=== PATIENT | female | born 1950 | race Caucasian/White ===

== ENCOUNTER → 2016-07-27 | Outpatient (CLI) | payer MEDICARE, BC ==
--- NOTE | ~2016-07-27 | US24 ---
[facility] A Service of [facility] RADIOLOGY TEXT RESULTS PATIENT: ISABEL AMOR LOCATION: [facility] : 48 UNIT #: [id number] AGE: [address]: Sharon Hannah APRN SEX: F ORDER DR: [id number] [facility] [address] [place], [place] [address] [id number] O MR#: [id number] Acc #: [id number] NAME: ISABEL AMOR : 1950 SEX: F STUDY DATE/TIME: 07/27/2016 8:22 UNIT: [facility] ROOM: STUDY DESCRIPTION: US Breast Unilateral Attending Physician: Sharon Hannah A.P.R.N. Referring Physician: Sharon Hannah A.P.R.N. Ordering Physician: Sharon Hannah A.P.R.N. Primary Care Physician: Sharon Hannah A.P.R.N. MEDICAL IMAGING REPORT This report is preliminary unless electronic signature is present EXAM Targeted right breast ultrasound, 07/27/2016 INDICATION 6-month followup of a probably benign lymph node in the right breast. TECHNIQUE Targeted ultrasound of the 7 o'clock position right breast was performed. COMPARISON Prior ultrasound, 01/27/2016 FINDINGS RIGHT BREAST: The patient was initially scanned independently by the technologist and then rescanned in my presence. The probably benign lymph node in the 7 o'clock position of the right breast is unchanged from the prior study. There is a vascular pedicle and what appears to represent a fatty notch. It measures up to about 8.0 mm. The patient should plan on returning for a bilateral screening study in January 2017 to return to an annual screening schedule absent new or worsening symptoms in either breast. The patient denied any new symptoms today. Findings and recommendations were discussed with the patient and she voiced understanding and agreement. IMPRESSION Probable benign lymph node in the 7 o'clock position of the right breast is unchanged. A bilateral screening mammogram in January 2017 is recommended. See discussion above. Patients over the age of 40 are entered into a reminder system with target due date for the next mammogram. A result letter will also be sent to the patient. [facility] A Service of [facility] RADIOLOGY TEXT RESULTS PATIENT: ISABEL AMOR [id number] [birth year] UNIT #: [id number] AGE: [address]: Sharon Hannah APRN SEX: F ORDER DR: BIRADS: 3 Probably Benign Finding; Short interval follow-up suggested Dictated by... Feroz Larios M.D. THIS IS AN ELECTRONICALLY VERIFIED REPORT eFroz Larios M.D. at 07/27/2016 9:56 AM Trudi TD: 07/27/2016 09:27 JOB #: [id number] MEDICAL IMAGING REPORT Page 1 of 1 COPY
== END | disposition home or self-care (01) ==
LOC: CWCC 08:07
DX: N63 Unspecified lump in breast (principal)
CPT/HCPCS: 76641